=== PATIENT | female | born 1970 | race Caucasian/White ===

== ENCOUNTER 2020-07-13 09:52 | Outpatient (REF) | payer OTHER, SELFPAY ==
[2020-07-13 10:35] LABS: COVID-19 Test Negative (Negative)
== END 2020-07-13 09:53 | disposition home or self-care (01) ==
LOC: HO.EMPCOV 09:52
PROVIDERS: Visit Provider Internal Medicine
DX: Z20.828 Contact with and (suspected) exposure to other viral communicable diseases (principal)
CPT/HCPCS: 87635; C9803

== ENCOUNTER 2020-08-08 12:00 | Outpatient (REF) | payer SELFPAY ==
[2020-08-08 12:56] LABS: Cholesterol 189 mg/dL
== END 2020-08-08 12:01 | disposition home or self-care (01) ==
LOC: HO.LNC 12:00
PROVIDERS: Visit Provider Pathology Anatomic Pathology & Clinical Pathology
DX: Z13.89 Encounter for screening for other disorder (principal)
CPT/HCPCS: 36415; 82465

== ENCOUNTER 2021-09-04 16:05 | Outpatient (REF) | payer SELFPAY ==
--- NOTE | ~2021-09-04 | MM_ITS ---
EXAMINATION: MM SCREENING DIGITAL BREAST TOMOSYNTHESIS, BILATERAL CLINICAL INFORMATION: Screening. Asymptomatic. The lifetime risk of breast cancer based on the Tyrer-Cuzick Model is 15%. COMPARISON: Mammography: 03/04/2019, 06/01/2013 (baseline) TECHNIQUE: Digital breast tomosynthesis is performed in both the craniocaudal and mediolateral oblique views along with computer-aided detection (CAD). Synthesized 2D images are generated from the tomosynthesis. FINDINGS: The breasts are heterogeneously dense, which may obscure small masses (ACR BI-RADS breast composition Category c). There is a fine fibronodular parenchymal pattern similar to prior studies. Parenchymal pattern borders on extremely dense. There is no interval mass or architectural abnormality or abnormal calcifications. There is no developing density or architectural abnormality. The axilla and skin contours are unremarkable. No significant changes. MM/MM tomosynthesis screening BI IMPRESSION: No mammographic evidence of malignancy. ASSESSMENT: BI-RADS 2: Benign RECOMMENDATION: Routine annual mammography screening. This patient's information was entered into a reminder system with a target due date for their next mammogram.
== END 2021-09-04 16:06 | disposition home or self-care (01) ==
LOC: HO.MAMMO 16:05
PROVIDERS: Visit Provider Internal Medicine
DX: Z12.31 Encounter for screening mammogram for malignant neoplasm of breast (principal)
CPT/HCPCS: 77063; 77067

== ENCOUNTER 2021-11-27 06:16 | Outpatient (REF) | payer OTHER, SELFPAY | END 2021-11-27 06:17 | disposition home or self-care (01) | LOC: HO.CT 06:16 | PROVIDERS: Visit Provider Internal Medicine | DX: Z13.89 Encounter for screening for other disorder (principal) ==

== ENCOUNTER 2021-12-07 06:12 | Outpatient (REF) | payer OTHER, SELFPAY ==
--- NOTE | ~2021-12-07 | CT_ITS ---
EXAMINATION: CT ABDOMEN AND PELVIS WITHOUT CONTRAST CLINICAL INFORMATION: Upper abdominal pain. COMPARISON: None TECHNIQUE: Multidetector volumetric imaging was performed from the superior aspect of the liver through the pubic symphysis. Sagittal and coronal reformatted images were obtained on the technologist's workstation. This CT examination was performed using dose optimization techniques as appropriate, variously including the following: *Automated exposure control *Adjustment of mA and/or kV according to patient size (this includes techniques or standardized protocols for targeted exams where dose is matched to indication/reason for exam; i.e. extremities or head) *Use of iterative reconstruction technique DLP: 454 mGy-cm FINDINGS: LUNG BASES: There is minimal atelectatic changes in the right lung base and right middle lobe. The heart size is normal. LIVER, GALLBLADDER, AND BILIARY TREE: The liver is normal in size, shape, and attenuation. No focal hepatic lesion or biliary ductal dilatation is present. The gallbladder is unremarkable with no evidence of radiopaque gallstones, gallbladder wall thickening, or obvious pericholecystic inflammatory changes. PANCREAS: Unremarkable. SPLEEN: Unremarkable. ADRENAL GLANDS: Unremarkable. KIDNEYS AND URETERS: The kidneys are normal in size, shape, and attenuation. No hydronephrosis, hydroureter, or calculi seen. No perinephric stranding. BLADDER: Unremarkable. GASTROINTESTINAL TRACT: Oral contrast opacified colon with stool appears unremarkable. The small-bowel loops are normal caliber. Appendix is normal caliber. No free air or free fluid seen. ABDOMINAL WALL: No significant hernia is appreciated. LYMPH NODES: Normal. VASCULAR: Unremarkable. PELVIC VISCERA: The uterus is anteverted and appears unremarkable. There are scattered phleboliths in the pelvis. No adnexal mass seen. No abnormal pelvic or inguinal lymph nodes. OSSEOUS STRUCTURES: There are degenerative disc changes with vacuum disc phenomena and posterior spondylosis L5-S1 disc level. CT/CT abdomen pelvis wo con IMPRESSION: No acute intra-abdominal process seen. Mild constipation. Fleischner guidelines were followed.
[2021-12-07] MEDS: Barium Sulfate Oral (Berry) 450 ML ORAL.SUSP 900 ML PO (08:57)
== END 2021-12-07 06:13 | disposition home or self-care (01) ==
LOC: HO.CT 06:12
PROVIDERS: Visit Provider Internal Medicine
DX: R10.10 Upper abdominal pain, unspecified (principal)
CPT/HCPCS: 74176